=== PATIENT | male | born 1995 | race Caucasian/White ===

== ENCOUNTER 2022-12-07 20:45 | Emergency (ER) | payer SELFPAY ==
[~2022-12-07] VITALS: Ht 167.6 cm; Wt 63.5 kg
[2022-12-07 20:45] VITALS: BP 134/75
--- NOTE | 2022-12-07 20:45 | NUR ---
PT BIB [facility], PREBOOK. TAKEN TO ER CHAIR
--- NOTE | 2022-12-07 21:03 | NUR ---
Dr. Franco examining patient.
[2022-12-07 21:20] VITALS: BP 134/75
--- NOTE | 2022-12-07 21:20 | NUR ---
PATIENT BIB [facility] POLICE DEPT. PATIENT EXAMINED BY DR. PERAZA. PATIENT MEDICALLY CLEARED AND RELEASED IN CUSTODY IN STABLE CONDITION. ORIGINAL PRE-BOOK FORM GIVEN TO OFFICER AKIL #[id number]. Patient discharged with v/s stable. Written and verbal after care instructions given and explained. Patient verbalized understanding. Police with in custody. All questions addressed prior to discharge. Advised to follow up with PMD.
== END 2022-12-07 21:20 ==
LOC: MED 20:45
DX: F10.129 Alcohol abuse with intoxication, unspecified (principal); Z02.89 Encounter for other administrative examinations; V89.2XXA Person injured in unspecified motor-vehicle accident, traffic, initial encounter; Y93.89 Activity, other specified; Y92.89 Other specified places as the place of occurrence of the external cause; Y99.8 Other external cause status
CPT/HCPCS: 99283